=== PATIENT | female | born 1955 | race Caucasian/White ===

== ENCOUNTER → 2017-01-20 | Outpatient (CLI) | payer OTHER | LOC: FIMAGING 11:54 | PROVIDERS: ATTEND Family Medicine | DX: Z12.31 Encounter for screening mammogram for malignant neoplasm of breast (principal); Z80.3 Family history of malignant neoplasm of breast | CPT/HCPCS: G0202 ==

== ENCOUNTER 2017-06-20 21:00 | Emergency (ER) | payer OTHER ==
[2017-06-20 21:04] VITALS: TEMP 97.7
[2017-06-20] MEDS ORDERED: NS 1,000 ML IV ONE ×2 (21:15→21:36)
[2017-06-20] MEDS ORDERED: ONDANSETRON 4 MG/2 ML VIAL IVP ONE (21:15)
--- NOTE | 2017-06-20 21:15 | EDPHY ---
H & P Stated Complaint: Vomiting Time Seen by Provider: 06/20/17 21:15 HPI/ROS: CHIEF COMPLAINT: Vomiting HISTORY OF PRESENT ILLNESS: The patient presents to the ED after she developed acute vomiting at 6:00 p.m.. She reports 20 episodes of bilious vomiting. She denies any diarrhea, hematemesis or hematochezia. The patient [place] She did have approximately 10 glasses of wine over a 6 hour period. She typically drinks less than 1 drink per day. The patient denies prior history of pancreatitis. She denies prior history of abdominal surgery. She does complain of mild epigastric pain. REVIEW OF SYSTEMS: A comprehensive 10 point review of systems is otherwise negative aside from elements mentioned in the history of present illness. Source: Patient Exam Limitations: No limitations - Personal History Current Tetanus/Diphtheria Vaccine: Yes Current Tetanus Diphtheria and Acellular Pertussis (TDAP): Yes - Medical/Surgical History Hx Asthma: No Hx Chronic Respiratory Disease: No Hx Diabetes: No Hx Cardiac Disease: No Hx Renal Disease: No Hx Cirrhosis: No Hx Alcoholism: No Hx HIV/AIDS: No Hx Splenectomy or Spleen Trauma: No Other PMH: HTN, hypothyriodism - Social History Smoking Status: Never smoked - Physical Exam Exam: General Appearance: Alert, mild discomfort secondary to active vomiting Eyes: Pupils equal and round no pallor or injection ENT, Mouth: Mucous membranes moist Respiratory: There are no retractions, lungs are clear to auscultation Cardiovascular: Regular rate and rhythm Gastrointestinal: Epigastric tenderness to palpation, normal bowel sounds, no peritoneal signs Neurological: A&O, normal motor function, normal sensory exam, normal cranial nerves Skin: Warm and dry, no rashes Musculoskeletal: Neck is supple nontender Extremities: symmetrical, full range of motion Constitutional: Initial Vital Signs Temperature (C) 36.5 C 06/20/17 21:02 Heart Rate 90 06/20/17 21:02 Respiratory Rate 16 06/20/17 21:02 Blood Pressure 160/85 H 06/20/17 21:02 O2 Sat (%) 98 06/20/17 21:02 O2 Delivery Mode Room Air Allergies/Adverse Reactions: No Known Allergies Allergy (Verified 06/20/17 21:04) Home Medications: Medication Instructions Recorded Amlodipine Besylate 07/06/16 Herbals/Supplements -Info Only 07/06/16 Levothyroxine 07/06/16 Omeprazole 07/06/16 Vitd3 07/06/16 Ondansetron Odt [Zofran Odt] 4 mg PO Q4PRN PRN #10 tab 06/20/17 Medical Decision Making ED Course/Re-evaluation: The patient presents to the ED with acute epigastric pain, nausea and vomiting. The patient had an IV established. She received 2 L of normal saline. She received 4 mg of IV Zofran. The patient's laboratory studies including CBC, liver function test and lipase are within normal limits. I re-evaluated the patient after receiving 2 L of normal saline. Her vomiting has subsided. Her nausea has improved. Her abdominal examination remains benign. The patient is comfortable being discharged home at this point time. Patient will be given customary aftercare instructions and return precautions. Patient presents to the ED with likely gastritis/gastroenteritis. There is no clinical evidence of pancreatitis, hepatitis or an acute abdomen currently. Differential Diagnosis: Differential diagnosis considered includes gastroenteritis, dehydration, metabolic abnormality, pancreatitis - Data Points Laboratory Results: Laboratory Results 06/20/17 21:30 06/20/17 21:30 06/20/17 06/20/17 21:30 21:30 WBC 11.68 10^3/uL H 10^3/uL (3.80-9.50) RBC 4.86 10^6/uL 10^6/uL (4.18-5.33) Hgb 14.9 g/dL g/dL (12.6-16.3) Hct 44.5 % % (38.0-47.0) MCV 91.6 fL fL (81.5-99.8) MCH 30.7 pg pg (27.9-34.1) MCHC 33.5 g/dL g/dL (32.4-36.7) RDW 13.5 % % (11.5-15.2) Plt Count 202 10^3/uL 10^3/uL (150-400) MPV 9.0 fL fL (8.7-11.7) Neut % (Auto) 89.7 % H % (39.3-74.2) Lymph % (Auto) 3.7 % L % (15.0-45.0) [place] % (Auto) 5.7 % % (4.5-13.0) Eos % (Auto) 0.2 % L % (0.6-7.6) Baso % (Auto) 0.3 % % (0.3-1.7) Nucleat RBC Rel Count 0.0 % % (0.0-0.2) Absolute Neuts (auto) 10.48 10^3/uL H 10^3/uL (1.70-6.50) Absolute Lymphs (auto) 0.43 10^3/uL L 10^3/uL (1.00-3.00) Absolute Monos (auto) 0.67 10^3/uL 10^3/uL (0.30-0.80) Absolute Eos (auto) 0.02 10^3/uL L 10^3/uL (0.03-0.40) Absolute Basos (auto) 0.03 10^3/uL 10^3/uL (0.02-0.10) Absolute Nucleated RBC 0.00 10^3/uL 10^3/uL (0-0.01) Immature Gran % 0.4 % % (0.0-1.1) Immature Gran # 0.05 10^3/uL 10^3/uL (0.00-0.10) Sodium 145 mEq/L H mEq/L (134-144) Potassium 3.9 mEq/L mEq/L (3.5-5.2) Chloride 107 mEq/L mEq/L (97-110) Carbon Dioxide 25 mEq/l mEq/l (22-31) Anion Gap 13 mEq/L mEq/L (8-16) BUN 19 mg/dL mg/dL (7-23) Creatinine 0.8 mg/dL mg/dL (0.6-1.0) Estimated GFR > 60 Glucose 161 mg/dL H mg/dL (70-100) Calcium 9.5 mg/dL mg/dL (8.5-10.4) Total Bilirubin 0.5 mg/dL mg/dL (0.1-1.4) Conjugated Bilirubin 0.1 mg/dL mg/dL (0.0-0.5) Unconjugated Bilirubin 0.4 mg/dL mg/dL (0.0-1.1) AST 24 IU/L IU/L (14-46) ALT 33 IU/L IU/L (9-52) Alkaline Phosphatase 109 IU/L IU/L (38-126) Total Protein 7.2 g/dL g/dL (6.3-8.2) Albumin 4.5 g/dL g/dL (3.5-5.0) Lipase 108 IU/L IU/L (23-300) Medications Given: Discontinued Medications Sodium Chloride (Ns) 1,000 mls @ 0 mls/hr IV EDNOW ONE; Wide Open PRN Reason: Protocol Stop: 06/20/17 21:16 Last Admin: 06/20/17 21:26 Dose: 1,000 mls Sodium Chloride (Ns) 1,000 mls @ 0 mls/hr IV EDNOW ONE; Wide Open PRN Reason: Protocol Stop: 06/20/17 21:37 Last Admin: 06/20/17 21:41 Dose: 1,000 mls Ondansetron HCl (Zofran) 4 mg IVP EDNOW ONE Stop: 06/20/17 21:16 Last Admin: 06/20/17 21:26 Dose: 4 mg Departure - Departure Disposition: Home, Routine, Self-Care Clinical Impression: Vomiting Condition: Good Instructions: Acute Nausea and Vomiting (ED) Additional Instructions: 1. Zofran as needed for nausea and vomiting. 2. Return to the ED for any worsening abdominal pain, fever or other concerns as this may be the sign of a condition not diagnosed today such as appendicitis or intra-abdominal infection. 3. [place] diet and liquids as advised in the emergency department. 4. Please follow-up with your primary care provider as needed. Referrals: Lindsay Frye MD [Primary Care Provider] - As per Instructions
[2017-06-20 21:38] LABS: PLATELET COUNT 202 10^3/uL (150-400)
[2017-06-20] MEDS ORDERED: ONDANSETRON 4MG PREPACK#2 BTL TAKEHOME ONE (22:59)
[2017-06-20 23:18] VITALS: BP 158/93; PULSE 107; RESP 16; O2SAT 95
== END 2017-06-20 23:17 | disposition home or self-care (01) ==
DX: R11.10 Vomiting, unspecified (principal); E86.9 Volume depletion, unspecified; I10 Essential (primary) hypertension
CPT/HCPCS: 96374; J2405

== ENCOUNTER → 2017-10-17 | Outpatient (CLI) | payer OTHER | LOC: BMCIMAGING 15:01 | PROVIDERS: ATTEND Family Medicine | DX: M24.9 Joint derangement, unspecified (principal) ==

== ENCOUNTER → 2018-01-25 | Outpatient (CLI) | payer OTHER | LOC: FIMAGING 12:10 | PROVIDERS: ATTEND Family Medicine | DX: Z12.31 Encounter for screening mammogram for malignant neoplasm of breast (principal) ==

== ENCOUNTER → 2018-08-20 | Outpatient (CLI) | payer OTHER | LOC: BMCIMAGING 13:36 | PROVIDERS: ATTEND Family Medicine | DX: S52.501A Unspecified fracture of the lower end of right radius, initial encounter for closed fracture (principal) ==

== ENCOUNTER 2018-09-29 23:34 | Emergency (ER) | payer OTHER ==
--- NOTE | 2018-09-29 23:54 | EDPHY ---
H & P Stated Complaint: HTN-220s/100s at home Time Seen by Provider: 09/29/18 23:54 HPI/ROS: HPI CHIEF COMPLAINT: High blood pressure. HISTORY OF PRESENT ILLNESS: Very pleasant 63-year-old female history of thyroid disease and high blood pressure. She takes amlodipine 5 mg. She does not altered take her blood pressure however she noticed that she had a very mild headache and decided to take her blood pressure and got readings 220s over 100s at home. She took this multiple times. And got a similar reading. She denies any chest pain or chest pressure. No focal numbness tingling. This is not a thunderclap headache. Not the worst headache of her life. It is very mild. She states she does not take her blood pressure very often but sometimes gets readings in the 170s. At other time she gets readings in the 105-130 systolic. Past Medical History: Hypertension, thyroid disease Past Surgical History: No recent surgery Social History: Denies drugs alcohol tobacco. Employed. Family History: Noncontributory ROS REVIEW OF SYSTEMS: 10 Systems were reviewed and negative with the exception of the elements mentioned in the history of present illness. Exam Constitutional triage nursing summary reviewed, vital signs reviewed, awake/ alert. Hypertensive at triage 170s. Eyes normal conjunctivae and sclera, EOMI, PERRLA. HENT normal inspection, atraumatic, moist mucus membranes, no epistaxis, neck supple/ no meningismus, no raccoon eyes. Respiratory clear to auscultation bilaterally, normal breath sounds, no respiratory distress, no wheezing. Cardiovascular rate normal, regular rhythm, no murmur, no edema, distal pulses normal. Gastrointestinal soft, non-tender, no rebound, no guarding, normal bowel sounds, no distension, no pulsatile mass. Genitourinary no CVA tenderness. Musculoskeletal no midline vertebral tenderness, full range of motion, no calf swelling, no tenderness of extremities, no meningismus, good pulses, neurovascularly intact. Skin pink, warm, & dry, no rash, skin atraumatic. Neurologic awake, alert and oriented x 3, AAOx3, moves all 4 extremities equally, motor intact, sensory intact, CN II-XII intact, normal cerebellar, normal vision, normal speech. Psychiatric normal mood/affect. Heme/Lymph/Immune no lymphadenopathy. Differential Diagnosis: But is not limited to in a particular order hypertensive urgency, hypertensive emergency, anxiety, stress, underlying hypertension Medical Decision Making: Plan for this patient IV establishment gentle IV fluids, basic blood work check creatinine, check troponin. The patient does not have chest pain. Monitor closely her blood pressure. Re-evaluation: Troponin 0.00 Blood pressure 159/95 at 2:00 a.m.. Patient resting comfortably no acute distress she denies any chest pain or shortness of breath or severe headache. She is feeling better and comfortable going home. Return precautions discussed with her. Creatinine is normal. Recommend she keep a blood pressure log twice a day and presents this to her primary care doctor Return emergency room if worsening high blood pressure chest pain shortness of breath or headache. She understands and is comfortable this plan. Source: Patient - Personal History Current Tetanus/Diphtheria Vaccine: Yes Current Tetanus Diphtheria and Acellular Pertussis (TDAP): Yes - Medical/Surgical History Hx Asthma: No Hx Chronic Respiratory Disease: No Hx Diabetes: No Hx Cardiac Disease: No Hx Renal Disease: No Hx Cirrhosis: No Hx Alcoholism: No Hx HIV/AIDS: No Hx Splenectomy or Spleen Trauma: No Other PMH: HTN, hypothyriodism - Social History Smoking Status: Never smoked Constitutional: Initial Vital Signs Temperature (C) 36.6 C 09/29/18 23:36 Heart Rate 99 09/29/18 23:36 Respiratory Rate 16 09/29/18 23:36 Blood Pressure 171/88 H 09/29/18 23:36 O2 Sat (%) 97 09/29/18 23:36 O2 Delivery Mode Room Air Allergies/Adverse Reactions: shellfish derived Allergy (Verified 09/29/18 23:41) Home Medications: Medication Instructions Recorded Amlodipine Besylate 07/06/16 Levothyroxine 07/06/16 Omeprazole 07/06/16 Vitd3 07/06/16 Medical Decision Making - Data Points Laboratory Results: Laboratory Results 09/30/18 00:15 09/30/18 09/30/18 09/30/18 00:22 00:15 00:15 WBC Pending RBC Pending Hgb Pending Hct Pending MCV Pending MCH Pending MCHC Pending RDW Pending Plt Count Pending MPV Pending Neut % (Auto) Pending Lymph % (Auto) Pending [place] % (Auto) Pending Eos % (Auto) Pending Baso % (Auto) Pending Nucleat RBC Rel Count Pending Absolute Neuts (auto) Pending Absolute Lymphs (auto) Pending Absolute Monos (auto) Pending Absolute Eos (auto) Pending Absolute Basos (auto) Pending Absolute Nucleated RBC Pending Immature Gran % Pending Immature Gran # Pending Sodium 142 mEq/L mEq/L (135-145) Potassium 3.5 mEq/L mEq/L (3.5-5.2) Chloride 110 mEq/L mEq/L (97-110) Carbon Dioxide 22 mEq/l mEq/l (22-31) Anion Gap Pending BUN 14 mg/dL mg/dL (7-23) Creatinine 0.8 mg/dL mg/dL (0.6-1.0) Estimated GFR Pending Glucose 93 mg/dL mg/dL (70-100) Calcium 9.2 mg/dL mg/dL (8.5-10.4) POC Troponin I 0.00 ng/mL ng/mL (0.00-0.08) Medications Given: Discontinued Medications Sodium Chloride (Ns) 500 mls @ 1,000 mls/hr IV EDNOW ONE PRN Reason: Protocol Stop: 09/30/18 00:32 Last Admin: 09/30/18 00:14 Dose: 500 mls Point of Care Test Results: Chemistry 09/30/18 00:22 POC Troponin I 0.00 ng/mL ng/mL (0.00-0.08) Departure - Departure Disposition: Home, Routine, Self-Care Clinical Impression: Hypertension Condition: Good Instructions: Hypertension (ED) Additional Instructions: 1. Keep an eye on her blood pressure for the next 2 weeks. I recommend checking at 9:00 a.m. 9:00 p.m.. Writing and down. 2. Following up closely with her primary care doctor 3. Return to the emergency room if worsening symptoms Referrals: Lindsay Frye MD [Primary Care Provider] - As per Instructions
[2018-09-30] MEDS ORDERED: NS 500 ML IV ONE (00:03)
[2018-09-30 02:13] VITALS: BP 140/91
[2018-09-30 02:33] LABS: PLATELET COUNT 236 10^3/uL (150-400)
== END 2018-09-30 02:12 | disposition home or self-care (01) ==
DX: I10 Essential (primary) hypertension (principal); E86.9 Volume depletion, unspecified; E07.9 Disorder of thyroid, unspecified; Z79.899 Other long term (current) drug therapy
CPT/HCPCS: 84484-ER